=== PATIENT | male | born 1975 | race Hispanic/Latino ===

== ENCOUNTER 2017-03-31 13:00 | Emergency (ER) | payer OTHER ==
[~2017-03-31] VITALS: Ht 167.6 cm; Wt 81.6 kg
[~2017-03-31 13:00] MED LIST: FLEXERIL10 MG PO; ULTRAM(MONOGRAP50 MG PO
[2017-03-31 13:32] LABS: ABSOLUTE BASOPHIL COUNT 0 /CUMM (0.0-0.2); ABSOLUTE EOSINOPHIL COUNT 0 /CUMM (0.0-0.7); ABSOLUTE GRANULOCYTE CT 2.9 /CUMM (1.4-6.5); ABSOLUTE LYMPH COUNT 1.5 /CUMM (1.2-3.4); ABSOLUTE MONOCYTE COUNT 0.7 /CUMM (0.10-0.60); BASOPHIL % 0.8 % (0.0-2.0); EOSINOPHIL % 0.9 % (0-5); GRANULOCYTE % 56.8 % (42.2-75.2); HEMATOCRIT 43.5 % (42-52); MEAN CORPUSCULAR HGB 33.9 PG (27.0-31.0); MEAN CORPUSCULAR HGB CONC 34.1 G/DL (33.0-37.0); MEAN CORPUSCULAR VOLUME 99.2 FL (80.0-94.0); MEAN PLATELET VOLUME 8.1 FL (7.4-10.4); PLATELET COUNT 163 /CUMM (130-400); RBC DISTRIBUTION WIDTH 13.4 % (11.5-14.5); RED BLOOD CELL CT 4.38 /CUMM (4.70-6.10); WHITE BLOOD CELL COUNT 5.2 /CUMM (4.8-10.8)
--- NOTE | 2017-03-31 14:34 | ED CARDIAC/CP/PALPITATIONS ---
History of Present Illness General Chief Complaint: Chest Pain Stated Complaint: LEFT ARM NUMBNESS,CHEST PRESSURE Source: patient, family Exam Limitations: language barrier Vital Signs & Intake/Output Vital Signs & Intake/Output Vital Signs Date Time Temp Pulse Resp B/P B/P Pulse O2 O2 Flow FiO2 Mean Ox Delivery Rate 03/31 1644 97.6 74 18 133/85 97 Room Air 03/31 1549 68 28 148/99 03/31 1525 60 18 148/99 97 Room Air 03/31 1447 Room Air 03/31 1318 98.0 68 18 127/80 96 Room Air Allergies Coded Allergies: No Known Allergies (03/31/17) Reconcile Medications Carbamazepine (Tegretol) 200 MG TABLET 1 TAB PO AD ALCOHOL WITHDRAWAL DAY 1- FOUR TABS DAY 2- THREE TABS DAY 3- TWO TABS DAY 4/DAY5 ONE TAB Simvastatin (Simvastatin*) 40 MG TABLET 1 TAB PO QPM CHOLESTEROL (Reported) Triage Note: 42 Y/O MALE C/O L ARM "NUMBNESS", BILATERAL LEG PAIN AND CHEST PAIN - SYMPTOMS ONSET WHILE AT WORK THIS MORNING; GONE AT PRESENT. PT STATES HE FELT THE SYMPTOMS WHILE WORKING OUTSIDE - HADN'T HAD ANYTHING TO EAT OR DRINK. DRANK COLD ORANGE JUICE AND THEN BEGAN TO FEEL BETTER. DENIES CURRENT PAIN. SPEAKING CLEARLY WITH NO NEURO DEFICITS NOTED. STRONG AND EQUAL HAND STRENGTH. PT STATES THIS HAPPENED ONCE BEFORE AND IT WAS RELATED TO THE HEAT. EKG/BLOOD DRAW IN PROGRESS Triage Nurses Notes Reviewed? 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 Symptoms still persisted where he tried to drink when he was however vomited up. Patient then went home and drank one beer and felt significantly improved. Patient does admit to drinking a sixpack every day. Denies any smoking denies any illicit drug use. Denies any fever chills hemoptysis leg swelling abdominal pain back pain history of DVT PE leg swelling. (BRYAN WEST) Past History Travel History Traveled to [place] past 21 day No Medical History Any Pertinent Medical History? see below for history Neurological: NONE EENT: NONE Cardiovascular: hypertension Respiratory: NONE Gastrointestinal: upper GI bleed, UPPER gi BLEED IN THE [place] 2 YEARS AGO, ENDOSCOPY PERFORMED, QUESTION CAUTERIZATION OF PEPTIC ULCER VERSUS VARICES. Hepatic: NONE Renal: NONE Musculoskeletal: NONE Psychiatric: NONE Endocrine: NONE Blood Disorders: NONE Cancer(s): NONE GROCERY STORE BAGGER/Reproductive: NONE Surgical History Surgical History: non-contributory, N Psychosocial History What is your primary language Malay Tobacco Use: Never used Family History Family History, If Any: MOTHER ("HOLE IN HER HEART"). FHx: heart disease Hx Contributory? No (BRYAN WEST) Review of Systems Review of Systems Constitutional: Reports: no symptoms. EENTM: Reports: no symptoms. Respiratory: Reports: no symptoms. Cardiovascular: Reports: see HPI. GI: Reports: no symptoms. Genitourinary: Reports: no symptoms. Musculoskeletal: Reports: no symptoms. Skin: Reports: no symptoms. Neurological/Psychological: Reports: see HPI, paresthesia. Hematologic/Endocrine: Reports: no symptoms. Immunologic/Allergic: Reports: no symptoms. All Other Systems: Reviewed and Negative (BRYAN WEST) Physical Exam Physical Exam General Appearance: no apparent distress, alert, comfortable Cardiovascular: regular rate/rhythm Comments: Well-developed well-nourished person in no acute distress HEENT: Normal EENT exam, extraocular motion intact, no nystagmus. Pupils equally round and reactive to light and accommodation. Nose is atraumatic. External auditory canal and Tympanic membranes clear. Pharynx normal. No swelling or edema. Neck: Supple, no lymphadenopathy, normal range of motion without pain or tenderness Back: Nontender, no CVA tenderness. Cardiovascular: Regular rate and rhythms no murmurs rubs or gallops, normal JVP Respiratory: Chest nontender. No respiratory distress.breath sounds clear to auscultation bilaterally Abdomen: Soft, nontender nondistended, no appreciable organomegaly. Normal bowel sounds. No ascites Extremity: No edema, no calf tenderness to palpation, normal and equal pulses. Neuro: Alert oriented x3, motor sensory normal, Skin: No appreciable rash on exposed skin, skin is warm and dry. Psych: Mood and affect is normal, memory and judgment is normal. Core Measures ACS in differential dx? Yes Severe Sepsis Present: No Septic Shock Present: No (IRMA BURGER,BRYAN) Progress Differential Diagnosis: AMI, aortic dissection, atrial fibrillation, cholecystitis, CHF/pulm edema, costochondritis, hyperkalemia, hypovolemia, hyperthyroid, hyperventilation, intracranial hemorrhage, musculoskeletal pain, myocarditis, pancreatitis, pericarditis, pneumonia, pneumothorax, PSVT, pulmonary embolism, PUD/GERD, PVCs/PACs, respiratory failure, rib fracture, sepsis, unstable angina, V-fib/V-Tach, WPW syndrome Plan of Care: Orders Procedure Date/time Status CIWA 03/31 1548 Active Add-on Test (ER Only) 03/31 1443 Active Telemetry/Supervisor Scrap Preparation 03/31 1443 Active THYROID STIMULATING HORMONE 03/31 1319 Complete THYROXINE 03/31 1319 Complete MAGNESIUM 03/31 1319 Complete ETHANOL 03/31 1319 Complete TROPONIN LEVEL 03/31 1303 Complete COMPREHENSIVE METABOLIC PANEL 03/31 1303 Complete CBC WITHOUT DIFFERENTIAL 03/31 1303 Complete EKG 03/31 1301 Active Laboratory Tests 03/31/17 1319: Anion Gap 14, Estimated GFR > 60, BUN/Creatinine Ratio 8.6, Glucose 110 H, Calcium 9.7, Magnesium 2.3, Total Bilirubin 0.5, AST 64 H, ALT 88 H, Alkaline Phosphatase 57, Troponin I < 0.01, Total Protein 7.9, Albumin 5.0, Globulin 2.9, Albumin/Globulin Ratio 1.7, TSH 0.852, Thyroxine (T4) 4.9, CBC w Diff NO MAN DIFF REQ, RBC 4.38 L, MCV 99.2 H, MCH 33.9 H, RDW 13.4, MPV 8.1, Gran % 56.8, Lymphocytes % 28.7, Monocytes % 12.8 H, Eosinophils % 0.9, Basophils % 0.8, Absolute Granulocytes 2.9, Absolute Lymphocytes 1.5, Absolute Monocytes 0.7 H, Absolute Eosinophils 0, Absolute Basophils 0, PUBS MCHC 34.1, Serum Alcohol 195.0 On initial presentation patient was in no apparent distress however when talking to patient and family members he did drink more alcohol than first was initially reported to me. I discussed with patient that I believe that his symptoms are most likely coming from alcohol withdrawal and dependency. When discussing with patient disposition he had requested evaluation for detox admission from alcohol.03/31/2017 3:49:17 PM patient WAS ORDERED CIWA AND WILL BE EVALUATED. PERC ZERO Nursing staff reevaluated patient with breathalyzer and patient scored a 0 Patient also was reevaluated for CIWA AND SCORED A 0 Due to [facility] policy the patient does not meet criteria for admission for alcohol dependency. Patient was given a list of detoxification inpatient facilities which I strongly advised patient to call today patient was given prescriptions of carbamazepine Upon discharge patient looks well no apparent distress and will comply with discharge instructions and had no questions (BRYAN WEST) Diagnostic Imaging: Viewed by Me: Radiology Read. CXR Impression: no acute abnormality Initial ED EK BPM, NSR, Comments: PATIENT: NANCY LAZO PRESENT AGE: 42 PATIENT ACCOUNT NO: [id number] : 74 LOCATION: [facility] ORDERING PHYSICIAN: BRYAN BURGER SERVICE DATE: 03/31/17 EXAM TYPE: RAD - XRY-CHEST XRAY, PA AND LATERAL EXAMINATION: CHEST 2 VIEWS CLINICAL INFORMATION: Chest pain. COMPARISON: 04/26/2015. TECHNIQUE: PA and lateral views of the chest were obtained. FINDINGS: The cardiac silhouette is not enlarged. The mediastinal and hilar contours are unremarkable. There are neither pleural effusions nor pneumothoraces. There are no consolidations. The osseous structures are unremarkable. IMPRESSION: No evidence for acute disease. DICTATED BY: MARIEL PARR MD DATE/TIME DICTATED:03/31/17 1505 TIE PULLER:NESTOR (BRYAN WEST) Departure Departure Disposition: HOME OR SELF CARE Condition: Stable Clinical Impression Primary Impression: Alcohol dependence Referrals: BENJAMIN HOLMAN MD (PCP/Family) Additional Instructions: As discussed please call the list of detox facilities provided to the emergency room for further evaluation treatment today. Begin the prescription of TEGRETOL as directed for your symptoms. If symptoms worsen or IF YOU develop any new concerning symptom return to the emergency room immediately. Please try to discontinue the use of alcohol Departure Forms: Customer Survey General Discharge Information Prescriptions: Current Visit Scripts Carbamazepine (Tegretol) 1 TAB PO AD #11 TAB DAY 1- FOUR TABS DAY 2- THREE TABS DAY 3- TWO TABS DAY 4/DAY5 ONE TAB (BRYAN WEST) PA/NETWORK SYSTEMS INTEGRATOR Co-Sign Statement Statement: ED Attending supervision documentation- [x] I saw and evaluated the patient. I have also reviewed all the pertinent lab results and diagnostic results. I agree with the findings and the plan of care as documented in the PA's/NETWORK SYSTEMS INTEGRATOR's documentation. [] I have reviewed the ED Record and agree with the PA's/NETWORK SYSTEMS INTEGRATOR's documentation. [] Additions or exceptions (if any) to the PAs/NETWORK SYSTEMS INTEGRATOR's note and plan are summarized below: [] (PARVIN PAIGE,ROMERO Hahn) Critical Care Note Critical Care Note Critical Care Time: non-applicable (IRMA BURGER,BRYAN)
[2017-03-31] MEDS ORDERED: SIMVASTATIN40 M1 PO (14:55)
--- NOTE | 2017-03-31 15:11 | RADIOLOGY REPORT ---
EXAMINATION: CHEST 2 VIEWS CLINICAL INFORMATION: Chest pain. COMPARISON: 04/26/2015. TECHNIQUE: PA and lateral views of the chest were obtained. FINDINGS: The cardiac silhouette is not enlarged. The mediastinal and hilar contours are unremarkable. There are neither pleural effusions nor pneumothoraces. There are no consolidations. The osseous structures are unremarkable. IMPRESSION: No evidence for acute disease.
[2017-03-31] MEDS ORDERED: TEGRETOL200 M1 PO (16:23)
[2017-03-31 16:44] VITALS: BP 133/85
[2017-03-31] MEDS ORDERED: PATANOL5 ML OPH (22:10)
[2017-03-31] MEDS ORDERED: MONTELUKAST SOD10 M1 PO (22:10)
[2017-04-01] MEDS ORDERED: NAPROSYN500 M1 PO (00:28)
[2017-04-01] MEDS ORDERED: ORPHENADRINE C100 MG PO (00:28)
== END 2017-03-31 16:41 ==
LOC: ERH 13:00
PROVIDERS: Emergency Medicine
DX: F10.20 Alcohol dependence, uncomplicated (principal); R07.89 Other chest pain; R42 Dizziness and giddiness; R53.1 Weakness; I10 Essential (primary) hypertension
CPT/HCPCS: 93005; 93010; G0480